=== PATIENT | male | born 1970 | race Caucasian/White ===

== ENCOUNTER 2024-05-23 10:02 | Emergency (ER) | payer OTHER, SELFPAY ==
[2024-05-23 10:08] VITALS: BP 168/102
[2024-05-23 10:25] LABS: Urine Albumin 1+ (Neg - Trace); Urine Bilirubin Negative (Negative); Urine Character Clear (Clear); Urine Color Yellow; Urine Glucose Negative (Negative); Urine Ketone Negative (Negative); Urine Leukocyte Negative (Negative); Urine Nitrite Negative (Negative); Urine Occult Blood 4+ (Negative); Urine Specific Gravity 1.025 (<1.030); Urine Urobilinogen Negative (Neg - 1+)
[2024-05-23 10:35] LABS: Urine Bacteria Few (Negative); Urine Red Blood Cell 50-60 /HPF (0-2); Urine Squamous Cell 0-2 /LPF (Few); Urine White Cell 0-2 /HPF (0-5)
[2024-05-23] MEDS: NSS 1000 IV (10:45)
[2024-05-23] MEDS: ZOFRAN 4 MG IV (10:46)
[2024-05-23] MEDS: TORADOL 15 MG IV (10:46)
[2024-05-23 10:48] VITALS: BMI 28.2
--- NOTE | 2024-05-23 12:15 | ED.GENMED ---
History of Present Illness
General
Chief Complaint: Flank Pain
Source: patient
Exam Limitations: none
Time Seen by Provider: 05/23/24 10:34
Nursing documentation reviewed up to this point in time: agreed with
History of Present Illness
History of Present Illness:
53-year-old male past medical history of hyperlipidemia, previous kidney stones presenting to the emergency department today with concerns of left-sided flank pain brief episode yesterday then again today ongoing today for a few hours which prompted
him to come to the ER. Denies any vomiting chest pain shortness of breath or fevers. Urinating well.
Past History
Past History
ED Past Medical History: None
ED Past Surgical History: None and Orthopedic (surgery with plates and screws left ankle 11/2018)
Social History
Tobacco: Smoker
Personal: Single
Employment: Employed (mortgage loan processor)
Review of Systems
Review of Systems
Allergies reviewed?: Yes
All Other Systems: ROS reviewed and negative except as documented in HPI and ROS
Phy Exam
Physical Exam
Physical Exam:
GENERAL: Alert , in no apparent distress
EYE: pupils equal and reactive
NECK: Supple, no significant adenopathy.
ENT: o/p clr, mmm.
CARDIAC: Regular rate and rhythm .
LUNGS: Clear breath sounds bilaterally, no acute respiratory distress, no wheezes/rales/rhonchi
ABDOMEN: Soft, without focal tenderness, no r/g, no cvat
NEUROLOGICAL: Alert and oriented, no focal neuro deficits
SKIN: Warm and dry, skin intact.
MUSCULOSKELETAL: No edema, well perfused.
PSYCH: Normal and appropriate interaction.
Course
Orders/Labs/Results
Orders:
Orders
05/23/24 10:14
Urinalysis Reflex To Culture Urgent
Date Specimen was Collected: 05/23/24
Time Specimen was Collected: 10:12
Urine Microscopic Reflex Cult Urgent
05/23/24 10:38
CT Abd/pel Without Iv Or Oral Urgent
Comment:
Reason For Exam: left flank pain
Ketorolac [Toradol] 15 mg IV NOW STA
Ondansetron Injectable [Zofran] 4 mg IV NOW STA
05/23/24 10:39
0.9% Sodium Chloride 1000 ml [Nss] 1,000 ml IV BOLUS
05/23/24 11:39
Tamsulosin [Flomax] 0.4 mg PO NOW STA
05/23/24 12:42
BMP [Basic Metabolic Panel] Urgent
CBC/With Diff [Complete Blood Count/With Diff] Urgent
Abnormal Lab Results
05/23/24 05/23/24
10:14 12:42
WBC 11.0 H 10^3/uL
(4.8-10.8)
MPV 11.3 H fL
(7.4-10.4)
Absolute Neuts (auto) 7.5 H 10^3/uL
(1.4-6.5)
Absolute Monos (auto) 0.8 H 10^3/uL
(0.1-0.6)
BUN 23 H mg/dl
(9-20)
Glucose 130 H mg/dl
(70-99)
Ur Occult Blood Reflex 4+ A
(Negative)
Urine RBC 50-60 A /HPF
(0-2)
Urine Bacteria (Reflex) Few A
(Negative)
Urine Albumin (Reflex) 1+ A
(Neg - Trace)
05/23/24 12:42
05/23/24 12:42
Vital Signs
Initial and Last Documented VS:
Initial Vital Signs
Temp Pulse Resp BP Pulse Ox
97.5 F 66 16 168/102 99
05/23/24 10:08 05/23/24 10:08 05/23/24 10:08 05/23/24 10:08 05/23/24 10:08
Last Documented Vital Signs
Temp Pulse Resp BP Pulse Ox
97.5 F 66 16 168/102 100
05/23/24 10:08 05/23/24 10:08 05/23/24 10:08 05/23/24 10:08 05/23/24 10:49
MDM/Problems Addressed
MDM/Problems Addressed:
53-year-old male presenting to the emergency department today with concerns of left-sided flank pain starting yesterday was brief then returned today. Blood pressure elevated but otherwise vital signs normal on arrival. CT scan showing distal
stone. No signs of complication no signs of infection or renal dysfunction stable for outpatient management return precautions given.
*Critical Care Note
Total Time (30-74mins, 75-104mins- exclusive of procedures): Not Applicable
ED Attending Note
-
Portions of this chart may have been created with voice recognition software.� Occasional wrong word or��sound alike� substitutions may have occurred due to the inherent limitations of voice recognition software.
Discharge Plan
Departure
Patient Disposition: Home (Routine Discharge)
Date of Disposition: 05/23/24
Time of Disposition: 13:43
Patient with high blood pressure during this ER visit?: No
Condition: Good
Covid-19: Not Applicable
Discharge Problem:
Calculus, ureteral
Instructions: Renal Colic (DC)
Prescriptions:
New
tamsulosin [Flomax] 0.4 mg capsule
0.4 mg PO HS Qty: 7 0RF
ondansetron 4 mg tablet,disintegrating
4 mg PO Q6H PRN (Reason: nausea and vomiting) Qty: 7 0RF
Referrals:
Kyle Arias MD [Family Provider] -
Vamsi Ritter Jr., MD [Active] - Follow up in 5-7 days
Activity Restrictions/Additional Instructions:
You came to the emergency department today with concerns of flank pain. You are found have a small stone. Please follow closely with urology and use the medications help with symptoms. Return for any worsening, new or concerning symptoms.
Interventions
Interventions:
*Risk Screen - Suicide Last Done: 05/23/24 10:56
*Neglect/Abuse Screening Last Done: 05/23/24 10:56
*ED- Fall Risk Assessment Last Done: 05/23/24 10:49
*ED COVID-19 Vaccine History Last Done: 05/23/24 10:49
RF-Mcxwhm-Wjxgfveryr Assessment Last Done: 05/23/24 10:53
ED-Male Genitourinary Assessment Last Done: 05/23/24 10:53
Discharge Date and Time
Print Language: LITHUANIAN
[2024-05-23] MEDS: FLOMAX 0.4 MG PO (12:42)
[2024-05-23 12:52] LABS: % Basophils 0.4 % (0-2); % Eosinophils 1.5 % (0-6); % Immature Granulocytes 0.4 % (0-0.5); % Lymphocytes 22.9 % (20.5-51.1); % Monocytes 7.2 % (1.7-9.3); % Neutrophils 67.6 % (42.2-75.2); Absolute Eosinophils 0.2 10^3/uL (0-0.7); Absolute Lymphocytes 2.5 10^3/uL (1.2-3.4); Absolute Monocytes 0.8 10^3/uL (0.1-0.6); Absolute Neutrophils 7.5 10^3/uL (1.4-6.5); Hematocrit 44.3 % (39.0-52.0); Hemoglobin 15.1 g/dL (13.0-18.0); Mean Corp Hgb Conc. 34.1 g/dL (33.0-37.0); Mean Corpuscular Hgb 30.7 pg (27.0-31.0); Mean Platelet Volume 11.3 fL (7.4-10.4); Nucleated Red Blood Cells % 0.2 % (-); Platelet Count 231 10^3/uL (130-400); Red Blood Cell Count 4.92 10^6/uL (4.70-6.10); Red Cell Dist. Width 12.9 % (11.5-14.5)
[2024-05-23 13:10] LABS: Blood Urea Nitrogen 23 mg/dl (9-20); Calcium 9.3 mg/dl (8.4-10.2); Carbon Dioxide 24 mmol/L (22-30); Chloride 102 mmol/L (98-107); Estimated Creatinine Clearance 97 ml/min; Glucose 130 mg/dl (70-99); Sodium 137 mmol/L (135-145); eGFR > 60.00
[2024-05-23 13:51] VITALS: BP 120/72
== END 2024-05-23 14:25 | disposition home or self-care (01) ==
LOC: EMR 10:02
PROVIDERS: Physician Assistant; EMERGENCY PHYSICIAN Emergency Medicine; FAMILY PHYSICIAN Family Medicine
DX: R10.9 Unspecified abdominal pain (principal); E78.00 Pure hypercholesterolemia, unspecified; F17.200 Nicotine dependence, unspecified, uncomplicated; N13.2 Hydronephrosis with renal and ureteral calculous obstruction; Z87.442 Personal history of urinary calculi
CPT/HCPCS: 99284; 96374; 96375; 96361; 74176; 80048; 81003; 81015; 85025

== ENCOUNTER → 2024-07-10 15:54 | Outpatient (REF) | payer OTHER, SELFPAY | LOC: RAD 15:54 | PROVIDERS: ATTENDING PHYSICIAN Specialist; FAMILY PHYSICIAN Family Medicine | DX: N20.1 Calculus of ureter (principal) | CPT/HCPCS: 74018 ==

== ENCOUNTER 2024-07-17 06:20 | Day surgery (SDC) | payer OTHER, SELFPAY ==
[2024-07-17] VITALS (8 sets, daily range): BP systolic 114–152; BP diastolic 76–91; BMI 26.3
[2024-07-17] MEDS: NORMOSOL-R/PLASMALYTE-A 1000 IV (11:16)
== END 2024-07-17 13:05 | disposition home or self-care (01) ==
LOC: SDS 06:20
PROVIDERS: ATTENDING PHYSICIAN Specialist
DX: N20.1 Calculus of ureter (principal)
CPT/HCPCS: 52356; 74018; 76000; 87086; 93005; C2617